=== PATIENT | male | born 1945 | race Caucasian/White ===

== ENCOUNTER 2016-12-27 13:32 | Emergency (ER) | payer MEDICARE, OTHER ==
[~2016-12-27 13:32] MED LIST: ALEVE220 MG PO; ASA5GR PO; ASAB PO; BRILINTA90 MG PO; COREG25 PO; FERROUS SULF325 M1 PO; GLUCPH PO; JANUVIA100 MG PO; LOFIBRA160 MG PO; LOP25 PO; NITROSTAT0.4 MG SL; PRILOSEC OTC20 MG PO; VITC500 PO; ZOCOR40 PO; [UNRECOGNIZED DRUG - REMARK] PO
[2017-03-26] MEDS ORDERED: MULTIPLE VIT PO (12:57)
[2017-03-26] MEDS ORDERED: PLAVIX PO (12:59)
[2017-03-26] MEDS ORDERED: CRESTOR40 MG PO (13:05)
[2017-03-26] MEDS ORDERED: T PO (13:08)
[2017-03-26] MEDS ORDERED: NORCO1 TA1 PO (13:09)
[2017-03-26] MEDS ORDERED: METHOC750B PO (13:11)
== END 2016-12-27 15:34 | disposition home or self-care (01) ==
LOC: ER 13:32
DX: S39.012A Strain of muscle, fascia and tendon of lower back, initial encounter (principal); Z79.899 Other long term (current) drug therapy; X58.XXXA Exposure to other specified factors, initial encounter
CPT/HCPCS: 96372; 99283; J1170